=== PATIENT | male | born 1960 | race American Indian/Alaskan Native ===

== ENCOUNTER 2018-11-17 23:45 | Emergency (ER) | payer OTHER ==
--- NOTE | 2018-11-18 00:03 | Emergency Department Report ---
HPI - General Chief Complaint: Allergic Reaction Time Seen by Provider: 11/17/18 23:57 - HPI HPI: 58-year-old male with a past medical history of hypertension currently on lisinopril presents to the hospital with complaints of upper lip swelling since 8:30 PM. Swelling and she started on right side of the upper lip and now includes the whole upper lip. He denies any other swelling to his throat, difficulty swallowing, shortness of breath, pruritus, or rash. He has been on lisinopril 30 mg for many years with last dose Monday morning. ED Past Medical Hx - Past Medical History Previous Medical History?: Yes Hx Hypertension: Yes - Medications Home Medications: Home Medications Medication Instructions Recorded Confirmed Last Taken Type amLODIPine [Norvasc] 5 mg PO DAILY #30 tab 11/18/18 Unknown Rx ED Review of Systems ROS: Stated complaint: LIP SWELLING Other details as noted in HPI Comment: All other systems reviewed and negative Physical Exam - Physical Exam Vital Signs: Vital Signs 11/17/18 23:53 Temperature 98.2 F Pulse Rate 82 Respiratory 20 Rate Blood Pressure 180/88 O2 Sat by Pulse 99 Oximetry Physical Exam: General: No limitations, patient is alert in no acute distress Head exam: Atraumatic, normocephalic Eyes exam: Normal appearance, pupils equal reactive to light, extraocular movements intact ENT: Moist mucous membrane, upper lip diffuse swelling. No tongue/throat swelling, no stridor Neck exam: Normal inspection, full range of motion, no meningismus nontender Respiratory exam: Clear to auscultation bilateral, no wheezes, rales, crackles Cardiovascular: Normal rate and rhythm, normal heart sounds Abdomen: Soft, nondistended, and nontender, with normal bowel sounds, no rebound, or guarding Extremity: Full range of motion normal inspection no deformity Back: Normal Inspection, full range of motion, no tenderness Neurologic: Alert, oriented x3, cranial nerves intact, no motor or sensory deficit Psychiatric: normal affect, normal mood Skin: Warm, dry, intact, no rash ED Course Vital Signs 11/17/18 23:53 Temperature 98.2 F Pulse Rate 82 Respiratory 20 Rate Blood Pressure 180/88 O2 Sat by Pulse 99 Oximetry ED Medical Decision Making - Medical Decision Making Patient was observed for greater than 5 hours without any advancement in symptoms. Swelling remains isolated to upper lip. He was treated with Solu- Medrol, Benadryl, and Pepcid for symptoms likely secondary to ANAT inhibitor angioedema. Patient will be discharged home - Differential Diagnosis angioedema, allergic reaction Critical Care Time: No Critical care attestation.: If time is entered above; I have spent that time in minutes in the direct care of this critically ill patient, excluding procedure time. ED Disposition Clinical Impression: ANAT inhibitor-aggravated angioedema, Lip swelling Disposition: TO HOME OR SELFCARE Is pt being admited?: No Does the pt Need Aspirin: No Condition: Stable Instructions: Angioedema (ED) Additional Instructions: The swelling to lip is likely caused by anat inhibitor associated angioedema. You can no longer take lisinopril and please report this adverse reaction to your doctors in the future. Follow up with your doctor or the clinic/doctor provided. Return if symptoms worsen as indicated by your discharge instructions. You have been started on an alternative medication for your blood pressure. Continue to monitor your blood pressure at home and follow-up with your doctor for medication adjustment. Prescriptions: amLODIPine [Norvasc] 5 mg PO DAILY #30 tab Referrals: JENNIFER MEDINA MD [Primary Care Provider] - 3-5 Days your, primary care doctor [Other] - 3-5 Days Time of Disposition: 04:50
[2018-11-18] MEDS ORDERED: SOLU-Medrol IV ONE (00:17)
[2018-11-18] MEDS ORDERED: BENADRYL IV ONE (00:17)
[2018-11-18] MEDS ORDERED: PEPCID IV ONE (00:17)
[2018-11-18 04:28] VITALS: BP 118/85
== END 2018-11-18 05:41 | disposition home or self-care (01) ==
LOC: ED 23:45
DX: T78.3XXA Angioneurotic edema, initial encounter (principal); I10 Essential (primary) hypertension; Z88.8 Allergy status to other drugs, medicaments and biological substances; X58.XXXA Exposure to other specified factors, initial encounter; Y93.89 Activity, other specified; Y92.89 Other specified places as the place of occurrence of the external cause; Y99.8 Other external cause status
CPT/HCPCS: 96374; 96375; 99282; J1200; J2930